=== PATIENT | female | born 1940 | race Caucasian/White ===

== ENCOUNTER 2018-12-17 12:33 | Emergency (ER) | payer MEDICARE, MEDICAID ==
[~2018-12-17] VITALS: Ht 167.6 cm; Wt 80.0 kg
[2018-12-17] MEDS ORDERED: ONDANSETRON HCL 4MG/2ML INJ IV STA (13:45)
[2018-12-17] MEDS ORDERED: SODIUM CHLORIDE 0.9% 1,000 ML IV ONE (13:45)
[2018-12-17 14:01] LABS: BASOPHILS % 0.3 % (0.0-2.0); EOSINOPHILS % 0.9 % (0.0-5.0); HEMATOCRIT. 37.6 % (36.0-48.0); HEMOGLOBIN. 12.1 g/dL (12.0-16.0); LYMPHOCYTES % 41.2 % (20.0-50.0); MEAN CORPUSCULAR VOLUME 80.7 fL (81.0-99.0); MEAN PLATELET VOLUME 8.3 fl (7.4-10.4); MONOCYTES % 8.1 % (2.0-8.0); NEUTROPHILS % 49.5 % (40.0-76.0); PLATELET 217 x1000/uL (130-400); RED BLOOD CELL COUNT 4.65 mill/uL (4.2-5.4); RED CELL DISTRIBUTION WIDTH 14.7 % (11.6-14.6)
[2018-12-17 14:07] LABS: CHLORIDE 102 mEq/L (98-107)
[2018-12-17 14:32] LABS: PROTHROMBIN TIME 10.6 sec (9.6-11.0)
[2018-12-17 14:53] LABS: CLARITY URINE CLOUDY (CLEAR); COLOR URINE DARK YELLOW (YELLOW); KETONES URINE 1+ (NEGATIVE); LEUKOCYTE ESTERASE URINE TRACE (NEGATIVE); NITRITE URINE NEGATIVE (NEGATIVE); OCCULT BLOOD URINE NEGATIVE (NEGATIVE); PROTEIN URINE TRACE (NEGATIVE); SPECIFIC GRAVITY URINE 1.023 (1.005-1.030)
[2018-12-17 17:20] VITALS: BP 124/48
== END 2018-12-17 17:55 | disposition home or self-care (01) ==
LOC: ER 12:33
DX: R10.0 Acute abdomen (principal); R11.10 Vomiting, unspecified; E11.65 Type 2 diabetes mellitus with hyperglycemia; I10 Essential (primary) hypertension; K57.90 Diverticulosis of intestine, part unspecified, without perforation or abscess without bleeding; H54.8 Legal blindness, as defined in USA
CPT/HCPCS: 36415; 71045; 74176; 80053; 81003; 82962; 83690; 85025; 85610; 93005; 96361; 96374; 99284; J2405; J7030

== ENCOUNTER 2022-10-15 13:33 | Emergency (ER) | payer MEDICARE, MEDICAID ==
[~2022-10-15] VITALS: Ht 162.6 cm; Wt 68.6 kg
[2022-10-15] MEDS ORDERED: NICARDIPINE 40MG/200ML PREMIX 200 ML IV SCH (14:00)
[2022-10-15 14:22] LABS: CHLORIDE 99 mEq/L (98-107)
[2022-10-15 14:23] LABS: BASOPHILS % 0.3 % (0.0-2.0); EOSINOPHILS % 2.1 % (0.0-5.0); HEMOGLOBIN. 11.6 g/dL (12.0-16.0); LYMPHOCYTES % 59.4 % (20.0-50.0); MEAN CORPUSCULAR HEMOGLOBIN 26.4 pg (28.0-32.0); MEAN CORPUSCULAR VOLUME 82.2 fL (81.0-99.0); MEAN PLATELET VOLUME 8.2 fl (7.4-10.4); MONOCYTES % 5.8 % (2.0-8.0); NEUTROPHILS % 32.4 % (40.0-76.0); PLATELET 235 x1000/uL (130-400); RED BLOOD CELL COUNT 4.38 mill/uL (4.2-5.4); RED CELL DISTRIBUTION WIDTH 15.8 % (11.6-14.6)
[2022-10-15 14:28] LABS: CLARITY URINE CLEAR (CLEAR); COLOR URINE YELLOW (YELLOW); KETONES URINE NEGATIVE (NEGATIVE); LEUKOCYTE ESTERASE URINE NEGATIVE (NEGATIVE); NITRITE URINE NEGATIVE (NEGATIVE); OCCULT BLOOD URINE NEGATIVE (NEGATIVE); PH URINE 7.5 (4.5-8.0); PROTEIN URINE NEGATIVE (NEGATIVE); SPECIFIC GRAVITY URINE 1.017 (1.005-1.030); UROBILINOGEN URINE 0.2 E.U./dL (0.2-1.0)
[2022-10-15 14:32] LABS: ETHANOL BLOOD < 10 mg/dL
[2022-10-15] MEDS ORDERED: IOHEXOL-350 100 ML BOTTLE ONE (14:37)
[2022-10-15] MEDS ORDERED: FLUORESCEIN SODIUM 1MG/STRIP LEFTEYE ONE (14:45)
[2022-10-15] MEDS ORDERED: TETRACAINE 0.5% OPHTH DROPS 4ML LEFTEYE ONE (14:45)
[2022-10-15 14:57] LABS: *AMPHETAMINES SCREEN URINE NEGATIVE (NEGATIVE); *BARBITURATES SCREEN URINE NEGATIVE (NEGATIVE); *BENZODIAZEPINES SCREEN URINE NEGATIVE (NEGATIVE); *COCAINE SCREEN URINE NEGATIVE (NEGATIVE); CANNABINOID URINE SCREEN NEGATIVE (NEGATIVE); METHADONE URINE SCREEN NEGATIVE (NEGATIVE); OPIATES URINE SCREEN NEGATIVE (NEGATIVE); PHENCYCLIDINE URINE SCREEN NEGATIVE (NEGATIVE)
[2022-10-15 14:59] LABS: PROTHROMBIN TIME 11.1 sec (9.6-11.0)
[2022-10-15] MEDS ORDERED: TRAM50TA3 PO (15:14)
[2022-10-15] MEDS ORDERED: PROT40 PO (15:15)
[2022-10-15] MEDS ORDERED: REPA0.5T5 PO (15:15)
[2022-10-15] MEDS ORDERED: FLUT15.844 BOTHNSTRLS (15:16)
[2022-10-15] MEDS ORDERED: SITA100T11 PO (15:17)
[2022-10-15] MEDS ORDERED: METF-415 PO (15:17)
[2022-10-15] MEDS ORDERED: LOSA100T32 PO (15:18)
[2022-10-15] MEDS ORDERED: ATOR20TA65 PO (15:18)
[2022-10-15] MEDS ORDERED: HYDR12.54 PO (15:19)
[2022-10-15] MEDS ORDERED: METO-385 PO (15:19)
[2022-10-15] MEDS ORDERED: BROM3DRO RIGHTEYE (15:22)
[2022-10-15] MEDS ORDERED: DORZ10DR9 RIGHTEYE (15:22)
[2022-10-15] MEDS ORDERED: ACYCLOVIR INJ 500 MG in DEXT 5% WATER 100 ML IV SCH (15:45)
[2022-10-15 16:13] VITALS: BP 144/72
[2022-10-15] MEDS ORDERED: VALA10002 MT (16:31)
== END 2022-10-15 17:05 | disposition home or self-care (01) ==
LOC: ER 13:43 → EDBEDREQ 15:46 → EDBEDREQTM 15:46 → ER 17:05 → CANBEDREQ 18:18
DX: G51.0 Bell's palsy (principal); B00.52 Herpesviral keratitis; H44.812 Hemophthalmos, left eye; I10 Essential (primary) hypertension; E11.9 Type 2 diabetes mellitus without complications; Z79.82 Long term (current) use of aspirin; Z88.0 Allergy status to penicillin
CPT/HCPCS: 36415; 70450; 70496; 70498; 71045; 80053; 80305; 80320; 81003; 82962; 84484; 85025; 85610; 86850; 86900; 86901; 93005; 96365; 99285; J0133; J7060; Q9967; G0480